=== PATIENT | male | born 1970 | race Caucasian/White ===

== ENCOUNTER 2017-12-08 06:01 | Inpatient (IN) | payer SELFPAY ==
[~2017-12-08] VITALS: Ht 177.8 cm; Wt 112.2 kg
[2017-12-08] VITALS (7 sets, daily range): BP systolic 95–114; BP diastolic 53–74
[2017-12-08] MEDS ORDERED: PANTOPRAZOLE SODIUM 40 MG/VIAL IV STA (06:50)
[2017-12-08] MEDS ORDERED: SODIUM CHLORIDE 0.9% 1,000 ML IV ONE ×2 (06:50→08:15)
[2017-12-08] MEDS ORDERED: ONDANSETRON HCL 4MG/2ML VIAL IV STA (06:50)
[2017-12-08 07:34] LABS: CHLORIDE 106 mEq/L (98-107)
[2017-12-08 07:38] LABS: BASOPHILS % 0.6 % (0.0-2.0); EOSINOPHILS % 1.4 % (0.0-5.0); LYMPHOCYTES % 18.1 % (20.0-50.0); MEAN CORPUSCULAR HEMOGLOBIN 27.7 pg (28.0-32.0); MEAN CORPUSCULAR VOLUME 83.4 fL (80.0-94.0); MEAN PLATELET VOLUME 9.6 fl (7.4-10.4); MONOCYTES % 11.5 % (2.0-8.0); NEUTROPHILS % 68.4 % (40.0-76.0); PLATELET 151 x1000/uL (130-400); RED BLOOD CELL COUNT 2.48 mill/uL (4.7-6.1); RED CELL DISTRIBUTION WIDTH 17.6 % (11.6-14.6)
[2017-12-08 07:41] LABS: HEMATOCRIT. 20.7 % (42.0-52.0); HEMOGLOBIN. 6.9 g/dL (14.0-18.0)
[2017-12-08 07:54] LABS: INR 1.3; PROTHROMBIN TIME 12.7 sec (9.1-11.1)
[2017-12-08] MEDS ORDERED: OCTREOTIDE ACETATE 50 MCG/ML 1ML IV STA (08:14)
[2017-12-08] MEDS ORDERED: METOCLOPRAMIDE HCL 10MG/2ML VIAL IV ONE (08:15)
[2017-12-08] MEDS ORDERED: FENTANYL CITRATE/PF 50MCG/ML 2ML VIAL IV ONE (08:15)
[2017-12-08] MEDS ORDERED: ONDANSETRON HCL 4MG/2ML VIAL IV PRN (12:15)
[2017-12-08] MEDS ORDERED: NA PHOS,M-B/NA PHOS,DI-BA ENEMA 118ML PR PRN (12:15)
[2017-12-08] MEDS ORDERED: MAGNESIUM/ALUMINUM HYDROXIDE/SIMETHICONE 30ML UDC PO PRN (12:15)
[2017-12-08] MEDS ORDERED: DIPHENHYDRAMINE 50MG/ML VIAL IV PRN (12:15)
[2017-12-08] MEDS ORDERED: CLONIDINE 0.1MG TABLET PO PRN (12:15)
[2017-12-08] MEDS ORDERED: IPRATROPIUM/ALBUTEROL 0.5-3(2.5)MG/3ML NEB INH PRN (12:15)
[2017-12-08] MEDS ORDERED: DOCUSATE SODIUM 100MG CAPSULE PO PRN (12:15)
[2017-12-08] MEDS ORDERED: GUAIFENESIN 200MG/10ML SUGAR FREE UDC PO PRN (12:15)
[2017-12-08] MEDS ORDERED: PANTOPRAZOLE 80 MG in SODIUM CHLORIDE 0.9% 100 ML IV SCH (12:15)
[2017-12-08] MEDS ORDERED: ACETAMINOPHEN 325MG TABLET PO PRN (12:15)
[2017-12-08] MEDS ORDERED: OCTREOTIDE 1,000 MCG in SODIUM CHLORIDE 0.9% 98 ML IV NR ×2 (12:45→13:00)
[2017-12-08] MEDS: PANTOPRAZOLE 80 MG in SODIUM CHLORIDE 0.9% 100 ML IV SCH ×2 (13:10→20:59)
[2017-12-08 15:06] LABS: TOTAL IRON BINDING CAPACITY 362 ug/dL (250-450)
[2017-12-08] MEDS ORDERED: PNEUMOCOCCAL 23-VAL P-SAC VAC 0.5 ML IM ONE (15:15)
[2017-12-08] MEDS: DEXT 5%/0.45% NACL 1000ML 1,000 ML IV SCH (17:58)
[2017-12-08 19:35] LABS: HEMATOCRIT 23.8 % (42.0-52.0); HEMOGLOBIN 7.8 g/dL (14.0-18.0)
[2017-12-08] MEDS ORDERED: ZOLPIDEM TARTRATE 5MG TABLET PO PRN (21:00)
[2017-12-09] VITALS (15 sets, daily range): BP systolic 98–131; BP diastolic 52–81
[2017-12-09 03:08] LABS: BASOPHILS % 0.9 % (0.0-2.0); EOSINOPHILS % 5.1 % (0.0-5.0); HEMATOCRIT. 23.9 % (42.0-52.0); HEMOGLOBIN. 8.2 g/dL (14.0-18.0); LYMPHOCYTES % 34.1 % (20.0-50.0); MEAN CORPUSCULAR HEMOGLOBIN 28.5 pg (28.0-32.0); MEAN CORPUSCULAR VOLUME 83.6 fL (80.0-94.0); MEAN PLATELET VOLUME 8.3 fl (7.4-10.4); NEUTROPHILS % 47.9 % (40.0-76.0); PLATELET 138 x1000/uL (130-400); RED BLOOD CELL COUNT 2.86 mill/uL (4.7-6.1); RED CELL DISTRIBUTION WIDTH 16.8 % (11.6-14.6)
[2017-12-09 03:13] LABS: CHLORIDE 110 mEq/L (98-107)
[2017-12-09 03:21] LABS: INR 1.2; PARTIAL THROMBOPLASTIN TIME 26.4 sec (23.4-31.0)
[2017-12-09] MEDS: DEXT 5%/0.45% NACL 1000ML 1,000 ML IV SCH (07:20)
[2017-12-09 08:21] LABS: *AMPHETAMINES SCREEN URINE PRESUMTIVE POSITIVE (NEGATIVE); *BARBITURATES SCREEN URINE NEGATIVE (NEGATIVE)
[2017-12-09 08:22] LABS: *BENZODIAZEPINES SCREEN URINE NEGATIVE (NEGATIVE); *COCAINE SCREEN URINE NEGATIVE (NEGATIVE); OPIATES URINE SCREEN NEGATIVE (NEGATIVE)
[2017-12-09 08:23] LABS: CANNABINOID URINE SCREEN NEGATIVE (NEGATIVE); PHENCYCLIDINE URINE SCREEN NEGATIVE (NEGATIVE)
[2017-12-09 08:29] LABS: METHADONE URINE SCREEN NEGATIVE (NEGATIVE)
[2017-12-09] MEDS: PANTOPRAZOLE 80 MG in SODIUM CHLORIDE 0.9% 100 ML IV SCH (09:15)
[2017-12-09] MEDS ORDERED: SIMETHICONE 40 MG/0.6 ML 30ML ONE (10:05)
[2017-12-09] MEDS ORDERED: ALBUMIN HUMAN 12.5G/250ML (5%) IV ONE (10:22)
[2017-12-09] MEDS ORDERED: PROPOFOL 200MG/20ML VIAL IV ONE (10:38)
[2017-12-09] MEDS ORDERED: MIDAZOLAM HCL 5 MG/5 ML VIAL ONE (10:38)
[2017-12-09] MEDS ORDERED: SODIUM CHLORIDE 0.9% 1,000 ML IV ONE (10:49)
[2017-12-09] MEDS ORDERED: HYDROMORPHONE HCL/PF 2MG/ML CPJ IV PRN (11:00)
[2017-12-09] MEDS ORDERED: ONDANSETRON HCL 4MG/2ML VIAL IV PRN (11:00)
[2017-12-09] MEDS ORDERED: DIATR MEGLU/DIATRIZOATE SOLN 30ML PO NR (11:15)
[2017-12-09] MEDS ORDERED: OMEPRAZOLE 20MG CAPSULE EXTENDED RELEASE PO NR (11:24)
[2017-12-09] MEDS ORDERED: IOHEXOL-300 100 ML BOTTLE ONE (18:06)
[2017-12-09] MEDS: PROPRANOLOL HCL 10MG TABLET PO SCH (20:05)
[2017-12-10] VITALS (11 sets, daily range): BP systolic 93–108; BP diastolic 50–69
[2017-12-10 07:17] LABS: EOSINOPHILS % 3.7 % (0.0-5.0); HEMATOCRIT. 24.6 % (42.0-52.0); HEMOGLOBIN. 8.3 g/dL (14.0-18.0); LYMPHOCYTES % 23.3 % (20.0-50.0); MEAN CORPUSCULAR HEMOGLOBIN 28.2 pg (28.0-32.0); MEAN CORPUSCULAR VOLUME 83.9 fL (80.0-94.0); MEAN PLATELET VOLUME 9.1 fl (7.4-10.4); MONOCYTES % 12.3 % (2.0-8.0); NEUTROPHILS % 59.7 % (40.0-76.0); PLATELET 138 x1000/uL (130-400); RED BLOOD CELL COUNT 2.93 mill/uL (4.7-6.1); RED CELL DISTRIBUTION WIDTH 17.1 % (11.6-14.6)
[2017-12-10] MEDS ORDERED: OMEPRAZOLE 20MG CAPSULE EXTENDED RELEASE PO SCH (07:30)
[2017-12-10] MEDS: PROPRANOLOL HCL 10MG TABLET PO SCH (09:00)
== END 2017-12-10 16:00 | disposition home or self-care (01) | DRG 241 ==
LOC: ER 06:39 → 5EST 08:17 → EDBEDREQSVC 08:23 → EDBEDREQ 08:23 → ENRESERV 12:37 → 5EST 13:51 → UNDOADMIN 13:51
PROVIDERS: ADMIT Internal Medicine; ATTEND Internal Medicine
PROC: 30233N1 Transfusion of Nonautologous Red Blood Cells into Peripheral Vein, Percutaneous Approach (ICD-10-PCS; principal; 2017-12-08)
PROC: 0DJ08ZZ Inspection of Upper Intestinal Tract, Via Natural or Artificial Opening Endoscopic (ICD-10-PCS; 2017-12-09)
DX: K29.61 Other gastritis with bleeding (principal); E43 Unspecified severe protein-calorie malnutrition; D68.9 Coagulation defect, unspecified; K76.6 Portal hypertension; D62 Acute posthemorrhagic anemia; K70.31 Alcoholic cirrhosis of liver with ascites; E83.51 Hypocalcemia; I85.10 Secondary esophageal varices without bleeding; F10.21 Alcohol dependence, in remission; F17.210 Nicotine dependence, cigarettes, uncomplicated; I10 Essential (primary) hypertension; Z79.899 Other long term (current) drug therapy; Z68.35 Body mass index [BMI] 35.0-35.9, adult
CPT/HCPCS: 36415; 71045; 74177; 76700; 80048; 80053; 80076; 80305; 82105; 82607; 82728; 82746; 83540; 83550; 83690; 85014; 85018; 85025; 85384; 85610; 85730; 86301; 86677; 86850; 86900; 86920; 93970; 96361; 96374; 96375; 99291; C9113; J2250; J2354; J2405; J2704; J2765; J3010; J7030; J7050; P9016; P9041; Q9963; Q9967

== ENCOUNTER 2017-12-30 08:53 | Inpatient (IN) | payer SELFPAY ==
[~2017-12-30] VITALS: Ht 175.3 cm; Wt 121.6 kg
[2017-12-30] VITALS (27 sets, daily range): BP systolic 112–170; BP diastolic 49–99
[2017-12-30] MEDS ORDERED: OCTREOTIDE ACETATE 50 MCG/ML 1ML IV STA (09:30)
[2017-12-30] MEDS ORDERED: PANTOPRAZOLE SODIUM 40 MG/VIAL IV STA (09:30)
[2017-12-30] MEDS ORDERED: METOCLOPRAMIDE HCL 10MG/2ML VIAL IV STA (09:30)
[2017-12-30] MEDS ORDERED: SODIUM CHLORIDE 0.9% 1,000 ML IV ONE ×2 (09:30→09:45)
[2017-12-30] MEDS ORDERED: ONDANSETRON HCL 4MG/2ML INJ IV ONE (10:30)
[2017-12-30 10:33] LABS: CHLORIDE 110 mEq/L (98-107)
[2017-12-30 10:37] LABS: INR 1.3; PROTHROMBIN TIME 12.6 sec (9.1-11.1)
[2017-12-30 10:39] LABS: MEAN CORPUSCULAR HEMOGLOBIN 24.9 pg (28.0-32.0); MEAN CORPUSCULAR VOLUME 78.8 fL (80.0-94.0); MEAN PLATELET VOLUME 9.2 fl (7.4-10.4); PLATELET 185 x1000/uL (130-400); RED BLOOD CELL COUNT 2.56 mill/uL (4.7-6.1); RED CELL DISTRIBUTION WIDTH 19.4 % (11.6-14.6)
[2017-12-30 10:45] LABS: HEMATOCRIT. 20.2 % (42.0-52.0); HEMOGLOBIN. 6.4 g/dL (14.0-18.0)
[2017-12-30] MEDS ORDERED: LIDOCAINE HCL 1% 10 MG/ML 10ML VIAL ONE (11:02)
[2017-12-30 11:08] LABS: PLATELET ESTIMATE NORMAL
[2017-12-30] MEDS ORDERED: DEXTROSE 50% WATER 50ML SYRINGE IV PRN (12:30)
[2017-12-30] MEDS ORDERED: DOCUSATE SODIUM 100MG CAPSULE PO PRN (12:30)
[2017-12-30] MEDS ORDERED: NA PHOS,M-B/NA PHOS,DI-BA ENEMA 118ML PR PRN (12:30)
[2017-12-30] MEDS ORDERED: CLONIDINE 0.1MG TABLET PO PRN (12:30)
[2017-12-30] MEDS ORDERED: IPRATROPIUM/ALBUTEROL 0.5-3(2.5)MG/3ML NEB INH PRN (12:30)
[2017-12-30] MEDS ORDERED: GUAIFENESIN 200MG/10ML SUGAR FREE UDC PO PRN (12:30)
[2017-12-30] MEDS ORDERED: ACETAMINOPHEN 650MG SUPP PR PRN (12:30)
[2017-12-30] MEDS ORDERED: ACETAMINOPHEN 650MG/20.3ML UDC GT PRN (12:30)
[2017-12-30] MEDS ORDERED: MAGNESIUM/ALUMINUM HYDROXIDE/SIMETHICONE 30ML UDC PO PRN (12:30)
[2017-12-30] MEDS: INSULIN LISPRO 100 UNITS/ML SUBCUT SCH ×3 (13:20→21:00)
[2017-12-30] MEDS ORDERED: ETOMIDATE 2MG/ML 10ML VIAL IV ONE (15:27)
[2017-12-30] MEDS ORDERED: MIDAZOLAM HCL 2 MG/2 ML VIAL ONE (15:32)
[2017-12-30] MEDS ORDERED: SIMETHICONE 40 MG/0.6 ML 30ML ONE (15:32)
[2017-12-30 15:37] LABS: HEPATITIS B SURFACE ANTIGEN NEGATIVE
[2017-12-30 16:05] LABS: HEPATITIS B CORE AB IGM NEGATIVE
[2017-12-30 16:07] LABS: HEPATITIS A AB IGM NEGATIVE (NEGATIVE)
[2017-12-30 17:10] LABS: HEMATOCRIT 21.6 % (42.0-52.0); MEAN CORPUSCULAR HEMOGLOBIN 25.5 pg (28.0-32.0); MEAN CORPUSCULAR VOLUME 79.9 fL (80.0-94.0); PLATELET 165 x1000/uL (130-400); RED CELL DISTRIBUTION WIDTH 18.9 % (11.6-14.6)
[2017-12-30 17:13] LABS: HEMOGLOBIN 6.9 g/dL (14.0-18.0)
[2017-12-30 17:16] LABS: INR 1.2; PROTHROMBIN TIME 12.1 sec (9.1-11.1)
[2017-12-30] MEDS: SODIUM CHLORIDE 0.9% INJ 3ML FLUSH IVF SCH ×2 (17:55→21:00)
[2017-12-30] MEDS: SODIUM CHLORIDE 0.9% 1,000 ML IV SCH (17:55)
[2017-12-30] MEDS: MORPHINE SULFATE 4 MG/ML CPJ (NOT FOR IM USE) IV PRN (17:55)
[2017-12-30] MEDS: PANTOPRAZOLE 80 MG in SODIUM CHLORIDE 0.9% 100 ML IV SCH (17:58)
[2017-12-30] MEDS ORDERED: PANTOPRAZOLE 80 MG in SODIUM CHLORIDE 0.9% 100 ML IV SCH (18:00)
[2017-12-30] MEDS: BLOOD SUGAR DIAGNOSTIC STRIP TEST SCH ×2 (18:00→21:00)
[2017-12-30] MEDS ORDERED: OCTREOTIDE 1,000 MCG in SODIUM CHLORIDE 0.9% 100 ML IV SCH (18:00)
[2017-12-30] MEDS: OCTREOTIDE 1,000 MCG in SODIUM CHLORIDE 0.9% 98 ML IV PRN (18:02)
[2017-12-30 18:56] LABS: *AMPHETAMINES SCREEN URINE PRESUMTIVE POSITIVE (NEGATIVE); *BARBITURATES SCREEN URINE NEGATIVE (NEGATIVE); *BENZODIAZEPINES SCREEN URINE PRESUMTIVE POSITIVE (NEGATIVE); *COCAINE SCREEN URINE NEGATIVE (NEGATIVE)
[2017-12-30 18:57] LABS: CANNABINOID URINE SCREEN NEGATIVE (NEGATIVE); METHADONE URINE SCREEN NEGATIVE (NEGATIVE); OPIATES URINE SCREEN NEGATIVE (NEGATIVE); PHENCYCLIDINE URINE SCREEN NEGATIVE (NEGATIVE)
[2017-12-30] MEDS ORDERED: PANTOPRAZOLE SODIUM 40 MG/VIAL IV SCH (21:00)
[2017-12-30] MEDS: ONDANSETRON HCL 4MG/2ML INJ IV PRN (21:07)
[2017-12-31] VITALS (61 sets, daily range): BP systolic 102–162; BP diastolic 52–104
[2017-12-31] MEDS: PANTOPRAZOLE 80 MG in SODIUM CHLORIDE 0.9% 100 ML IV SCH ×2 (01:23→11:38)
[2017-12-31] MEDS: MORPHINE SULFATE 4 MG/ML CPJ (NOT FOR IM USE) IV PRN ×4 (03:29→20:59)
[2017-12-31] MEDS: ONDANSETRON HCL 4MG/2ML INJ IV PRN ×3 (03:29→14:58)
[2017-12-31] MEDS: SODIUM CHLORIDE 0.9% INJ 3ML FLUSH IVF SCH ×3 (05:58→21:00)
[2017-12-31] MEDS: INSULIN LISPRO 100 UNITS/ML SUBCUT SCH ×4 (05:58→22:17)
[2017-12-31] MEDS: BLOOD SUGAR DIAGNOSTIC STRIP TEST SCH ×4 (05:58→22:16)
[2017-12-31 06:31] LABS: INR 1.2; PARTIAL THROMBOPLASTIN TIME 24.7 sec (23.4-31.0); PROTHROMBIN TIME 12.3 sec (9.1-11.1)
[2017-12-31 06:33] LABS: HEMATOCRIT. 24.9 % (42.0-52.0); HEMOGLOBIN. 8.2 g/dL (14.0-18.0); MEAN CORPUSCULAR HEMOGLOBIN 26.7 pg (28.0-32.0); MEAN CORPUSCULAR VOLUME 80.5 fL (80.0-94.0); MEAN PLATELET VOLUME 9.2 fl (7.4-10.4); PLATELET 136 x1000/uL (130-400); RED BLOOD CELL COUNT 3.09 mill/uL (4.7-6.1); RED CELL DISTRIBUTION WIDTH 17.7 % (11.6-14.6)
[2017-12-31 06:46] LABS: CHLORIDE 109 mEq/L (98-107)
[2017-12-31 06:51] LABS: AMMONIA 217 uMol/L (<32)
[2017-12-31 07:01] LABS: LDL CHOLESTEROL 88 mg/dL (5-100)
[2017-12-31 07:04] LABS: HDL CHOLESTEROL 29 mg/dL (40-59)
[2017-12-31] MEDS: LACTULOSE 20G/30ML UDC PO SCH ×3 (07:41→20:59)
[2017-12-31 08:16] LABS: NUCLEATED RED BLOOD CELLS 1 /100 WBC; PLATELET ESTIMATE NORMAL
[2017-12-31] MEDS: OCTREOTIDE 1,000 MCG in SODIUM CHLORIDE 0.9% 98 ML IV PRN (09:13)
[2017-12-31] MEDS: SUCRALFATE 1 G/10 ML UDC PO SCH ×2 (11:46→17:57)
[2017-12-31] MEDS: SODIUM CHLORIDE 0.9% 1,000 ML IV SCH (11:47)
[2017-12-31] MEDS ORDERED: PNEUMOCOCCAL 23-VAL P-SAC VAC 0.5 ML IM ONE (12:00)
[2017-12-31] MEDS ORDERED: DIATR MEGLU/DIATRIZOATE SOLN 30ML PO NR (15:46)
[2017-12-31] MEDS ORDERED: CLONIDINE 0.1MG TABLET PO PRN (16:01)
[2017-12-31 18:44] LABS: AMMONIA 113 uMol/L (<32)
[2017-12-31] MEDS ORDERED: IOHEXOL-300 100 ML BOTTLE ONE (20:39)
[2018-01-01] VITALS (38 sets, daily range): BP systolic 103–144; BP diastolic 51–99
[2018-01-01 00:20] LABS: HEMATOCRIT 25.1 % (42.0-52.0); HEMOGLOBIN 8.3 g/dL (14.0-18.0)
[2018-01-01] MEDS: MORPHINE SULFATE 4 MG/ML CPJ (NOT FOR IM USE) IV PRN ×3 (01:30→15:37)
[2018-01-01] MEDS: SODIUM CHLORIDE 0.9% 1,000 ML IV SCH ×3 (01:31→15:00)
[2018-01-01] MEDS: PANTOPRAZOLE 80 MG in SODIUM CHLORIDE 0.9% 100 ML IV SCH ×4 (01:32→22:04)
[2018-01-01] MEDS: SUCRALFATE 1 G/10 ML UDC PO SCH ×4 (01:32→18:00)
[2018-01-01] MEDS: ONDANSETRON HCL 4MG/2ML INJ IV PRN ×2 (04:05→15:13)
[2018-01-01] MEDS: HYDROCODONE/ACETAMINOPHEN 5/325MG TABLET PO PRN (04:39)
[2018-01-01 05:36] LABS: HEMATOCRIT 22.1 % (42.0-52.0); HEMOGLOBIN 7.1 g/dL (14.0-18.0)
[2018-01-01 06:00] LABS: AMMONIA 71 uMol/L (<32)
[2018-01-01] MEDS: SODIUM CHLORIDE 0.9% INJ 3ML FLUSH IVF SCH ×3 (06:00→22:51)
[2018-01-01] MEDS: LACTULOSE 20G/30ML UDC PO SCH ×3 (06:54→22:55)
[2018-01-01] MEDS: BLOOD SUGAR DIAGNOSTIC STRIP TEST SCH ×4 (06:54→22:00)
[2018-01-01] MEDS: INSULIN LISPRO 100 UNITS/ML SUBCUT SCH ×4 (06:55→21:00)
[2018-01-01] MEDS: OCTREOTIDE 1,000 MCG in SODIUM CHLORIDE 0.9% 98 ML IV PRN (07:25)
[2018-01-01] MEDS ORDERED: SODIUM BICARBONATE 4% (2.4MEQ) 5ML VIAL IV ONE (09:01)
[2018-01-01] MEDS ORDERED: LIDOCAINE HCL 1% 10 MG/ML 10ML VIAL ONE (09:02)
[2018-01-01 16:43] LABS: BASOPHILS % 0.2 % (0.0-2.0); EOSINOPHILS % 0.2 % (0.0-5.0); LYMPHOCYTES % 7.8 % (20.0-50.0); MEAN CORPUSCULAR HEMOGLOBIN 26.4 pg (28.0-32.0); MEAN CORPUSCULAR VOLUME 81.4 fL (80.0-94.0); MEAN PLATELET VOLUME 9.1 fl (7.4-10.4); MONOCYTES % 8.4 % (2.0-8.0); NEUTROPHILS % 83.4 % (40.0-76.0); PLATELET 142 x1000/uL (130-400); RED BLOOD CELL COUNT 2.53 mill/uL (4.7-6.1); RED CELL DISTRIBUTION WIDTH 17.8 % (11.6-14.6)
[2018-01-01 16:45] LABS: CHLORIDE 106 mEq/L (98-107)
[2018-01-01 16:55] LABS: HEMATOCRIT. 20.6 % (42.0-52.0); HEMOGLOBIN. 6.7 g/dL (14.0-18.0)
[2018-01-02] VITALS (31 sets, daily range): BP systolic 81–145; BP diastolic 43–95
[2018-01-02 01:41] LABS: HEMATOCRIT 23.5 % (42.0-52.0); HEMOGLOBIN 7.7 g/dL (14.0-18.0)
[2018-01-02] MEDS: HYDROCODONE/ACETAMINOPHEN 5/325MG TABLET PO PRN ×2 (02:05→20:28)
[2018-01-02] MEDS: SODIUM CHLORIDE 0.9% 1,000 ML IV SCH ×2 (03:05→11:47)
[2018-01-02] MEDS: OCTREOTIDE 1,000 MCG in SODIUM CHLORIDE 0.9% 98 ML IV PRN ×2 (04:08→19:42)
[2018-01-02 06:00] LABS: AMMONIA 94 uMol/L (<32)
[2018-01-02] MEDS: PANTOPRAZOLE 80 MG in SODIUM CHLORIDE 0.9% 100 ML IV SCH ×4 (06:00→18:36)
[2018-01-02] MEDS: SODIUM CHLORIDE 0.9% INJ 3ML FLUSH IVF SCH ×3 (06:48→21:55)
[2018-01-02] MEDS: SUCRALFATE 1 G/10 ML UDC PO SCH ×4 (06:55→17:24)
[2018-01-02] MEDS: LACTULOSE 20G/30ML UDC PO SCH ×3 (06:55→21:57)
[2018-01-02] MEDS: BLOOD SUGAR DIAGNOSTIC STRIP TEST SCH ×4 (06:56→21:45)
[2018-01-02] MEDS: INSULIN LISPRO 100 UNITS/ML SUBCUT SCH ×4 (07:00→21:54)
[2018-01-02 09:32] LABS: HEMATOCRIT 24.3 % (42.0-52.0)
[2018-01-02] MEDS: ONDANSETRON HCL 4MG/2ML INJ IV PRN (12:47)
[2018-01-02] MEDS: ACETAMINOPHEN 325MG TABLET PO PRN (13:40)
[2018-01-02 14:49] LABS: HEMATOCRIT 23.1 % (42.0-52.0); HEMOGLOBIN 7.7 g/dL (14.0-18.0)
[2018-01-02] MEDS: MORPHINE SULFATE 4 MG/ML CPJ (NOT FOR IM USE) IV PRN (18:51)
[2018-01-02] MEDS: DIPHENHYDRAMINE 50MG/ML VIAL IV PRN (19:49)
[2018-01-02 20:10] LABS: HEMATOCRIT 19.2 % (42.0-52.0); HEMOGLOBIN 6.2 g/dL (14.0-18.0)
[2018-01-02] MEDS: CEFTRIAXONE 1 G PREMIX 50 ML IV SCH (21:50)
[2018-01-02] MEDS: METRONIDAZOLE 500 MG PREMIX 100 ML IV SCH (22:56)
[2018-01-03] VITALS (52 sets, daily range): BP systolic 83–151; BP diastolic 38–100
[2018-01-03] MEDS: SUCRALFATE 1 G/10 ML UDC PO SCH ×5 (00:16→23:00)
[2018-01-03] MEDS: HYDROCODONE/ACETAMINOPHEN 5/325MG TABLET PO PRN (02:09)
[2018-01-03] MEDS: PANTOPRAZOLE 80 MG in SODIUM CHLORIDE 0.9% 100 ML IV SCH ×3 (03:38→21:50)
[2018-01-03] MEDS: BLOOD SUGAR DIAGNOSTIC STRIP TEST SCH ×5 (06:30→20:57)
[2018-01-03] MEDS: LACTULOSE 20G/30ML UDC PO SCH ×3 (06:35→21:03)
[2018-01-03] MEDS: METRONIDAZOLE 500 MG PREMIX 100 ML IV SCH ×3 (06:35→22:37)
[2018-01-03] MEDS: INSULIN LISPRO 100 UNITS/ML SUBCUT SCH ×5 (06:36→20:57)
[2018-01-03 08:59] LABS: HEMATOCRIT 23.6 % (42.0-52.0); HEMOGLOBIN 7.8 g/dL (14.0-18.0)
[2018-01-03 09:19] LABS: AMMONIA 32 uMol/L (<32)
[2018-01-03] MEDS: OCTREOTIDE 1,000 MCG in SODIUM CHLORIDE 0.9% 98 ML IV PRN (11:40)
[2018-01-03 12:30] LABS: HEMATOCRIT 22.1 % (42.0-52.0); HEMOGLOBIN 7.4 g/dL (14.0-18.0)
[2018-01-03] MEDS: ACETAMINOPHEN 325MG TABLET PO PRN (18:21)
[2018-01-03] MEDS: CEFTRIAXONE 1 G PREMIX 50 ML IV SCH (20:57)
[2018-01-03] MEDS: MORPHINE SULFATE 4 MG/ML CPJ (NOT FOR IM USE) IV PRN (22:55)
[2018-01-03 23:24] LABS: HEMATOCRIT 23.5 % (42.0-52.0); HEMOGLOBIN 7.9 g/dL (14.0-18.0)
[2018-01-04] VITALS (63 sets, daily range): BP systolic 89–151; BP diastolic 43–99
[2018-01-04] MEDS: OCTREOTIDE 1,000 MCG in SODIUM CHLORIDE 0.9% 98 ML IV PRN ×2 (00:14→19:39)
[2018-01-04] MEDS: SODIUM CHLORIDE 0.9% 1,000 ML IV SCH ×2 (04:22→18:00)
[2018-01-04] MEDS: LACTULOSE 20G/30ML UDC PO SCH ×2 (05:29→14:00)
[2018-01-04] MEDS: SUCRALFATE 1 G/10 ML UDC PO SCH ×3 (05:29→18:07)
[2018-01-04 05:34] LABS: HEMATOCRIT 21.4 % (42.0-52.0); HEMOGLOBIN 7.3 g/dL (14.0-18.0)
[2018-01-04 05:51] LABS: AMMONIA 58 uMol/L (<32)
[2018-01-04] MEDS: METRONIDAZOLE 500 MG PREMIX 100 ML IV SCH ×2 (06:36→14:46)
[2018-01-04] MEDS: BLOOD SUGAR DIAGNOSTIC STRIP TEST SCH ×4 (07:50→20:38)
[2018-01-04] MEDS: PANTOPRAZOLE 80 MG in SODIUM CHLORIDE 0.9% 100 ML IV SCH ×2 (08:18→18:07)
[2018-01-04] MEDS: INSULIN LISPRO 100 UNITS/ML SUBCUT SCH ×4 (08:20→20:43)
[2018-01-04] MEDS: MORPHINE SULFATE 4 MG/ML CPJ (NOT FOR IM USE) IV PRN ×2 (08:36→14:46)
[2018-01-04 13:15] LABS: HEMATOCRIT 23.7 % (42.0-52.0)
[2018-01-04] MEDS: SODIUM CHLORIDE 0.9% INJ 3ML FLUSH IVF SCH ×2 (14:00→21:14)
[2018-01-04] MEDS ORDERED: SORBITOL 70% SOLN 30ML PO NR ×2 (16:00→20:00)
[2018-01-04] MEDS: ACETAMINOPHEN 325MG TABLET PO PRN (19:38)
[2018-01-04 20:21] LABS: HEMOGLOBIN 9.3 g/dL (14.0-18.0)
[2018-01-04] MEDS: CEFTRIAXONE 1 G PREMIX 50 ML IV SCH (20:42)
[2018-01-05] VITALS (37 sets, daily range): BP systolic 81–143; BP diastolic 43–91
[2018-01-05] MEDS: LACTULOSE 20G/30ML UDC PO SCH ×4 (00:02→22:08)
[2018-01-05] MEDS: SUCRALFATE 1 G/10 ML UDC PO SCH ×4 (00:02→18:29)
[2018-01-05] MEDS: ONDANSETRON HCL 4MG/2ML INJ IV PRN ×2 (00:03→06:59)
[2018-01-05] MEDS: METRONIDAZOLE 500 MG PREMIX 100 ML IV SCH ×4 (00:03→22:08)
[2018-01-05] MEDS: PANTOPRAZOLE 80 MG in SODIUM CHLORIDE 0.9% 100 ML IV SCH ×2 (03:23→13:39)
[2018-01-05 05:37] LABS: INR 1.4; PARTIAL THROMBOPLASTIN TIME 28.2 sec (23.4-31.0); PROTHROMBIN TIME 13.8 sec (9.1-11.1)
[2018-01-05 05:45] LABS: CHLORIDE 105 mEq/L (98-107)
[2018-01-05 05:57] LABS: AMMONIA 62 uMol/L (<32)
[2018-01-05] MEDS: SODIUM CHLORIDE 0.9% INJ 3ML FLUSH IVF SCH ×3 (06:33→22:00)
[2018-01-05] MEDS: ACETAMINOPHEN 325MG TABLET PO PRN (06:59)
[2018-01-05] MEDS: BLOOD SUGAR DIAGNOSTIC STRIP TEST SCH ×4 (07:36→21:59)
[2018-01-05] MEDS: INSULIN LISPRO 100 UNITS/ML SUBCUT SCH ×4 (08:20→21:00)
[2018-01-05 08:47] LABS: BASOPHILS % 0.2 % (0.0-2.0); HEMATOCRIT. 24.2 % (42.0-52.0); HEMOGLOBIN. 8.3 g/dL (14.0-18.0); LYMPHOCYTES % 10.7 % (20.0-50.0); MEAN CORPUSCULAR HEMOGLOBIN 29.1 pg (28.0-32.0); MEAN CORPUSCULAR VOLUME 85.1 fL (80.0-94.0); MEAN PLATELET VOLUME 9.3 fl (7.4-10.4); MONOCYTES % 13.6 % (2.0-8.0); NEUTROPHILS % 74.5 % (40.0-76.0); PLATELET 116 x1000/uL (130-400); RED BLOOD CELL COUNT 2.85 mill/uL (4.7-6.1); RED CELL DISTRIBUTION WIDTH 16.9 % (11.6-14.6)
[2018-01-05] MEDS ORDERED: MORPHINE SULFATE 4 MG/ML CPJ (NOT FOR IM USE) IV SCH (11:35)
[2018-01-05] MEDS ORDERED: SIMETHICONE 40 MG/0.6 ML 30ML ONE (15:37)
[2018-01-05] MEDS ORDERED: PROPOFOL 200MG/20ML VIAL IV ONE (15:56)
[2018-01-05] MEDS ORDERED: MIDAZOLAM HCL 5 MG/5 ML VIAL ONE (15:56)
[2018-01-05] MEDS ORDERED: LIDOCAINE HCL/PF 1% 10 MG/ML 5ML VIAL ONE (15:57)
[2018-01-05] MEDS ORDERED: SUCCINYLCHOLINE CHLORIDE 200MG/10ML VIAL IV ONE (15:57)
[2018-01-05] MEDS: CEFTRIAXONE 1 G PREMIX 50 ML IV SCH (22:08)
[2018-01-05] MEDS: MORPHINE SULFATE 4 MG/ML CPJ (NOT FOR IM USE) IV PRN (22:28)
[2018-01-06] VITALS (17 sets, daily range): BP systolic 93–125; BP diastolic 45–94
[2018-01-06] MEDS: PANTOPRAZOLE 80 MG in SODIUM CHLORIDE 0.9% 100 ML IV SCH ×2
[2018-01-06] MEDS: MORPHINE SULFATE 4 MG/ML CPJ (NOT FOR IM USE) IV PRN (03:02)
[2018-01-06] MEDS: SODIUM CHLORIDE 0.9% INJ 3ML FLUSH IVF SCH ×3 (06:09→21:15)
[2018-01-06] MEDS: LACTULOSE 20G/30ML UDC PO SCH ×3 (06:13→21:15)
[2018-01-06] MEDS: SUCRALFATE 1 G/10 ML UDC PO SCH ×5 (06:13→23:43)
[2018-01-06] MEDS: BLOOD SUGAR DIAGNOSTIC STRIP TEST SCH ×4 (06:31→21:18)
[2018-01-06] MEDS: PANTOPRAZOLE 40MG DR TABLET PO SCH (06:31)
[2018-01-06 06:40] LABS: HEMATOCRIT 23.2 % (42.0-52.0); HEMOGLOBIN 7.8 g/dL (14.0-18.0); MEAN CORPUSCULAR HEMOGLOBIN 28.8 pg (28.0-32.0); MEAN CORPUSCULAR VOLUME 85.2 fL (80.0-94.0); PLATELET 126 x1000/uL (130-400); RED BLOOD CELL COUNT 2.72 mill/uL (4.7-6.1); RED CELL DISTRIBUTION WIDTH 16.8 % (11.6-14.6)
[2018-01-06 07:06] LABS: CHLORIDE 105 mEq/L (98-107)
[2018-01-06] MEDS: METRONIDAZOLE 500 MG PREMIX 100 ML IV SCH ×3 (07:33→22:18)
[2018-01-06] MEDS: INSULIN LISPRO 100 UNITS/ML SUBCUT SCH ×4 (07:50→21:00)
[2018-01-06] MEDS ORDERED: SODIUM BICARBONATE 4% (2.4MEQ) 5ML VIAL IV ONE (12:34)
[2018-01-06] MEDS ORDERED: LIDOCAINE HCL 1% 10 MG/ML 10ML VIAL ONE (12:35)
[2018-01-06] MEDS ORDERED: FENTANYL CITRATE/PF 50MCG/ML 2ML VIAL ONE (12:54)
[2018-01-06] MEDS ORDERED: FENTANYL CITRATE/PF 50MCG/ML 2ML VIAL IV ONE (13:15)
[2018-01-06 16:09] LABS: HEMOGLOBIN 7.3 g/dL (14.0-18.0)
[2018-01-06] MEDS: ACETAMINOPHEN 325MG TABLET PO PRN (20:39)
[2018-01-06] MEDS: DIPHENHYDRAMINE 50MG/ML VIAL IV PRN (20:46)
[2018-01-06] MEDS: CEFTRIAXONE 1 G PREMIX 50 ML IV SCH (21:10)
[2018-01-07] VITALS (11 sets, daily range): BP systolic 104–144; BP diastolic 50–77
[2018-01-07] MEDS: LACTULOSE 20G/30ML UDC PO SCH ×3 (06:00→22:00)
[2018-01-07] MEDS: SUCRALFATE 1 G/10 ML UDC PO SCH ×3 (06:29→18:00)
[2018-01-07] MEDS: PANTOPRAZOLE 40MG DR TABLET PO SCH (06:29)
[2018-01-07] MEDS: BLOOD SUGAR DIAGNOSTIC STRIP TEST SCH ×4 (06:38→21:00)
[2018-01-07] MEDS: INSULIN LISPRO 100 UNITS/ML SUBCUT SCH ×4 (06:39→22:00)
[2018-01-07] MEDS: SODIUM CHLORIDE 0.9% INJ 3ML FLUSH IVF SCH ×2 (06:40→22:00)
[2018-01-07 12:11] LABS: HEMATOCRIT 26.4 % (42.0-52.0); HEMOGLOBIN 8.8 g/dL (14.0-18.0)
[2018-01-07 12:22] LABS: INR 1.3; PROTHROMBIN TIME 13.4 sec (9.1-11.1)
[2018-01-07] MEDS: TAMSULOSIN HCL 0.4MG SR CAPSULE PO SCH (12:31)
[2018-01-07] MEDS ORDERED: SODIUM BICARBONATE 4% (2.4MEQ) 5ML VIAL IV ONE (15:28)
[2018-01-07] MEDS ORDERED: LIDOCAINE HCL 1% 10 MG/ML 10ML VIAL ONE (15:28)
[2018-01-07] MEDS: METRONIDAZOLE 500 MG PREMIX 100 ML IV SCH ×2 (16:53→20:44)
[2018-01-07] MEDS: CEFTRIAXONE 1 G PREMIX 50 ML IV SCH (20:44)
[2018-01-08] VITALS (9 sets, daily range): BP systolic 98–133; BP diastolic 50–83
[2018-01-08] MEDS: SUCRALFATE 1 G/10 ML UDC PO SCH ×4 (00:09→19:45)
[2018-01-08] MEDS: ACETAMINOPHEN 325MG TABLET PO PRN (00:09)
[2018-01-08] MEDS: ONDANSETRON HCL 4MG/2ML INJ IV PRN (04:15)
[2018-01-08] MEDS: METRONIDAZOLE 500 MG PREMIX 100 ML IV SCH ×3 (04:27→21:39)
[2018-01-08] MEDS: SODIUM CHLORIDE 0.9% INJ 3ML FLUSH IVF SCH ×2 (05:23→14:06)
[2018-01-08] MEDS: PANTOPRAZOLE 40MG DR TABLET PO SCH (05:37)
[2018-01-08] MEDS: LACTULOSE 20G/30ML UDC PO SCH ×3 (05:37→22:11)
[2018-01-08 06:54] LABS: HEMATOCRIT. 21.6 % (42.0-52.0); HEMOGLOBIN. 7.3 g/dL (14.0-18.0); MEAN CORPUSCULAR HEMOGLOBIN 28.4 pg (28.0-32.0); MEAN CORPUSCULAR VOLUME 84.7 fL (80.0-94.0); MEAN PLATELET VOLUME 9.1 fl (7.4-10.4); PLATELET 146 x1000/uL (130-400); RED BLOOD CELL COUNT 2.55 mill/uL (4.7-6.1)
[2018-01-08 07:01] LABS: AMMONIA 96 uMol/L (<32)
[2018-01-08 07:18] LABS: CHLORIDE 105 mEq/L (98-107)
[2018-01-08] MEDS: INSULIN LISPRO 100 UNITS/ML SUBCUT SCH ×4 (07:50→21:00)
[2018-01-08] MEDS: BLOOD SUGAR DIAGNOSTIC STRIP TEST SCH ×4 (07:56→21:00)
[2018-01-08] MEDS: TAMSULOSIN HCL 0.4MG SR CAPSULE PO SCH (09:27)
[2018-01-08] MEDS: CEFTRIAXONE 1 G PREMIX 50 ML IV SCH (09:31)
[2018-01-08 13:15] LABS: NUCLEATED RED BLOOD CELLS 6 /100 WBC; PLATELET ESTIMATE NORMAL
[2018-01-08] MEDS ORDERED: OCTREOTIDE ACETATE 50 MCG/ML 1ML IV NR (13:30)
[2018-01-08] MEDS: OCTREOTIDE 1,000 MCG in SODIUM CHLORIDE 0.9% 98 ML IV SCH (15:16)
[2018-01-08 15:36] LABS: HEMATOCRIT 18.8 % (42.0-52.0); HEMOGLOBIN 5.9 g/dL (14.0-18.0)
[2018-01-08 21:25] LABS: INR 1.5; PROTHROMBIN TIME 15.3 sec (9.1-11.1)
[2018-01-08 21:33] LABS: HEMATOCRIT 21.1 % (42.0-52.0); HEMOGLOBIN 6.8 g/dL (14.0-18.0)
[2018-01-09] VITALS (11 sets, daily range): BP systolic 98–125; BP diastolic 59–79
[2018-01-09 00:09] LABS: HEMATOCRIT 22.3 % (42.0-52.0)
[2018-01-09] MEDS: SUCRALFATE 1 G/10 ML UDC PO SCH ×3 (02:26→13:02)
[2018-01-09] MEDS: ACETAMINOPHEN 325MG TABLET PO PRN (03:39)
[2018-01-09] MEDS: CEFTRIAXONE 1 G PREMIX 50 ML IV SCH (06:11)
[2018-01-09] MEDS: LACTULOSE 20G/30ML UDC PO SCH (06:25)
[2018-01-09] MEDS: PANTOPRAZOLE 40MG DR TABLET PO SCH (06:26)
[2018-01-09] MEDS: METRONIDAZOLE 500 MG PREMIX 100 ML IV SCH ×2 (06:50→13:02)
[2018-01-09] MEDS: BLOOD SUGAR DIAGNOSTIC STRIP TEST SCH ×2 (07:20→13:02)
[2018-01-09] MEDS: INSULIN LISPRO 100 UNITS/ML SUBCUT SCH ×2 (07:50→12:50)
[2018-01-09] MEDS: OCTREOTIDE 1,000 MCG in SODIUM CHLORIDE 0.9% 98 ML IV SCH (09:30)
[2018-01-09 10:22] LABS: HEMATOCRIT 23.9 % (42.0-52.0)
[2018-01-09 10:24] LABS: INR 1.5; PROTHROMBIN TIME 15.1 sec (9.1-11.1)
[2018-01-09] MEDS ORDERED: PHYTONADIONE 10MG/ML AMP SUBCUT NR (10:30)
[2018-01-09 10:39] LABS: CHLORIDE 103 mEq/L (98-107)
[2018-01-09] MEDS: TAMSULOSIN HCL 0.4MG SR CAPSULE PO SCH (13:01)
[2018-01-09 15:42] LABS: HEMATOCRIT 23.3 % (42.0-52.0); HEMOGLOBIN 7.9 g/dL (14.0-18.0)
[2018-01-10] MEDS ORDERED: PHYTONADIONE 10MG/ML AMP SUBCUT NR (09:00)
== END 2018-01-09 16:58 | disposition home or self-care (01) ==
LOC: ER 08:53 → MICUSO 11:14 → ENRESERV 15:22 → CVICU 01-03 17:00 → 6WST 01-06 02:25
PROVIDERS: ADMIT Family Medicine; ATTEND Family Medicine
PROC: 05H933Z Insertion of Infusion Device into Right Brachial Vein, Percutaneous Approach (ICD-10-PCS; 2017-12-30)
PROC: B54MZZA Ultrasonography of Right Upper Extremity Veins, Guidance (ICD-10-PCS; 2017-12-30)
PROC: 06L38CZ Occlusion of Esophageal Vein with Extraluminal Device, Via Natural or Artificial Opening Endoscopic (ICD-10-PCS; 2017-12-30)
PROC: 30233N1 Transfusion of Nonautologous Red Blood Cells into Peripheral Vein, Percutaneous Approach (ICD-10-PCS; principal; 2017-12-30 17:00)
PROC: 0W9G3ZZ Drainage of Peritoneal Cavity, Percutaneous Approach (ICD-10-PCS; 2018-01-01)
PROC: 0DJ08ZZ Inspection of Upper Intestinal Tract, Via Natural or Artificial Opening Endoscopic (ICD-10-PCS; 2018-01-05)
PROC: 0DJD8ZZ Inspection of Lower Intestinal Tract, Via Natural or Artificial Opening Endoscopic (ICD-10-PCS; 2018-01-05)
PROC: 0FB13ZX Excision of Right Lobe Liver, Percutaneous Approach, Diagnostic (ICD-10-PCS; 2018-01-06)
PROC: 0W9G3ZZ Drainage of Peritoneal Cavity, Percutaneous Approach (ICD-10-PCS; 2018-01-06)
PROC: 0W9G3ZZ Drainage of Peritoneal Cavity, Percutaneous Approach (ICD-10-PCS; 2018-01-07)
DX: K76.6 Portal hypertension (principal); I81 Portal vein thrombosis; I85.11 Secondary esophageal varices with bleeding; D68.9 Coagulation defect, unspecified; D62 Acute posthemorrhagic anemia; K22.10 Ulcer of esophagus without bleeding; K70.31 Alcoholic cirrhosis of liver with ascites; K21.9 Gastro-esophageal reflux disease without esophagitis; F10.21 Alcohol dependence, in remission; F17.210 Nicotine dependence, cigarettes, uncomplicated; K29.60 Other gastritis without bleeding; K31.89 Other diseases of stomach and duodenum; K44.9 Diaphragmatic hernia without obstruction or gangrene; K64.9 Unspecified hemorrhoids; R00.0 Tachycardia, unspecified; R07.89 Other chest pain; R33.9 Retention of urine, unspecified
CPT/HCPCS: 36415; 36569; 49083; 71045; 74018; 74176; 74177; 76705; 76937; 76942; 78278; 80048; 80053; 80061; 80076; 80305; 82040; 82105; 82140; 82248; 82962; 83690; 84484; 85014; 85018; 85025; 85027; 85049; 85384; 85610; 85730; 86705; 86709; 86803; 86850; 86900; 86920; 87070; 87205; 87340; 88108; 88307; 88312; 88313; 89050; 90732; 93005; 93306; 96361; 96374; 96375; 97162; 97530; 99291; A9560; C1725; C9113; G0482; J0330; J0696; J1200; J1815; J2250; J2270; J2354; J2405; J2704; J2765; J3010; J3430; J3490; J7030; J7040; J7050; P9016; Q9963; Q9967